=== PATIENT | male | born 1975 | race Caucasian/White ===

== ENCOUNTER 2022-03-24 05:57 | Day surgery (SDC) | payer OTHER ==
[~2022-03-24] VITALS: Ht 172.7 cm; Wt 88.6 kg
[~2022-03-24 05:57] MED LIST: NICODERM PATCH; TIZANIDINE HCL2 MG PO
[2022-03-24] MEDS ORDERED: NICO21TP TOP (06:16)
[2022-03-24] MEDS ORDERED: Norco 10-325 T1 EACH PO (06:17)
[2022-03-24] MEDS ORDERED: IBU600 M1 PO (06:17)
--- NOTE | 2022-03-24 07:52 | NUR ---
03/24/22 0752 Maria L Edwards NO PREOP ANTIBIOTICS PER .
--- NOTE | 2022-03-24 09:17 | NUR ---
Patient up to Ambulate independently. Gait steady. Discharge instructions reviewed with patient. Patient verbalizes understanding. Copy given to patient to take home. Patient States Post-Procedure ride home has been arranged. Discharged via wheelchair to private car for ride home.
== END 2022-03-24 09:17 | disposition home or self-care (01) ==
LOC: ORSCMMR 05:57 → ORD 10:00 → ORSCMMR 10:00
PROVIDERS: Surgery
PROC: 0JB40ZX Excision of Right Neck Subcutaneous Tissue and Fascia, Open Approach, Diagnostic (ICD-10-PCS; principal; 2022-03-24 07:30)
DX: L72.0 Epidermal cyst (principal); F17.210 Nicotine dependence, cigarettes, uncomplicated
CPT/HCPCS: 88304; A9270; J2795; J7120

== ENCOUNTER 2023-04-16 16:18 | Emergency (ER) | payer OTHER ==
[~2023-04-16] VITALS: Ht 172.7 cm; Wt 87.5 kg
[~2023-04-16 16:18] MED LIST changes: +IBU600 M1 PO; +NICO21TP TOP; +Norco 10-325 T1 EACH PO
[2023-04-16 17:09] LABS: BASOPHILS ABSOLUTE AUTO 0.09 K/mm3 (0.00-0.23); BASOPHILS PERCENT AUTO 1 % (0-2); EOSINOPHILS ABSOLUTE AUTO 0.44 K/mm3 (0.00-0.68); EOSINOPHILS PERCENT AUTO 3 % (0-6); Hematocrit 44.1 % (37.0-53.0); Hemoglobin 15.9 g/dL (13.5-17.5); IMMATURE GRAN ABSOLUTE AUTO 0.04 K/mm3 (0.00-0.10); IMMATURE GRAN PERCENT AUTO 0 % (0-1); LYMPHOCYTES PERCENT AUTO 24 % (21-46); MONOCYTES PERCENT AUTO 11 % (4-13); Mean Corpuscular HGB 33.4 pg (26.0-34.0); Mean Corpuscular HGB Conc 36.1 g/dL (31.5-36.5); Mean Corpuscular Volume 93 fL (80-100); NEUTROPHILS ABSOLUTE AUTO 7.93 K/mm3 (1.96-9.15); NEUTROPHILS PERCENT AUTO 61 % (41-73); Platelet Count 369 K/mm3 (150-400); RDW Coefficient Variation 12.3 % (11.7-14.2); RDW Standard Deviation 42.5 fL (35.1-46.3); Red Blood Cell Count 4.76 M/mm3 (4.30-5.90)
[2023-04-16 17:37] LABS: Alanine Aminotransfer (ALT/SGP 53 U/L (12-78); Albumin, Blood 4.1 g/dL (3.4-5.0); Alk Phos 93 U/L (50-136); Anion Gap Unable to Calculate mmol/L (6-16); Aspartate Aminotrans (AST/SGOT 30 U/L (12-37); Bilirubin, Total 0.2 mg/dL (0.1-1.0); Blood Urea Nitrogen 9 mg/dL (8-24); Bun/Creatinine Ratio 10.3 (12.0-20.0); CO2, Blood 27 mmol/L (21-32); Calcium, Blood 9.3 mg/dL (8.5-10.1); Chloride, Blood 109 mmol/L (98-108); Creatinine, Blood 0.87 mg/dL (0.60-1.20); Glomerular Filtration Rate 107 (60-); Glucose, Blood 119 mg/dL (70-99); Potassium, Blood 4.3 mmol/L (3.5-5.5); Sodium, Blood 135 mmol/L (136-145); Total Protein, Blood 8.1 g/dL (6.4-8.2)
[2023-04-16] MEDS ORDERED: Cephalexin Monohydrate 500 MG Cap PO ONE (18:55)
[2023-04-16] MEDS ORDERED: Ketorolac Tromethamine 15mg Vial IV ONE (18:55)
[2023-04-16] MEDS ORDERED: CEPH500 PO (19:00)
[2023-04-16 19:28] VITALS: BP 156/92
== END 2023-04-16 19:30 | disposition home or self-care (01) ==
LOC: ER 16:18
PROVIDERS: Student in an Organized Health Care Education/Training Program
DX: L03.211 Cellulitis of face (principal); K04.7 Periapical abscess without sinus; Z88.8 Allergy status to other drugs, medicaments and biological substances; Z79.899 Other long term (current) drug therapy
CPT/HCPCS: 70491; 80053; 85025; 96374-59; 99283-25; J1885; Q9967

== ENCOUNTER 2023-04-18 07:48 | Inpatient (IN) | payer OTHER ==
[~2023-04-18] VITALS: Ht 172.7 cm; Wt 93.9 kg
[~2023-04-18 07:48] MED LIST changes: +CEPH500 PO
[2023-04-18] MEDS ORDERED: Clindamycin 900mg in D5W 50ML 50 ML IV ONE (08:30)
[2023-04-18 08:52] LABS: BASOPHILS ABSOLUTE AUTO 0.09 K/mm3 (0.00-0.23); BASOPHILS PERCENT AUTO 1 % (0-2); EOSINOPHILS ABSOLUTE AUTO 0.49 K/mm3 (0.00-0.68); EOSINOPHILS PERCENT AUTO 4 % (0-6); Hematocrit 46.1 % (37.0-53.0); Hemoglobin 15.8 g/dL (13.5-17.5); IMMATURE GRAN ABSOLUTE AUTO 0.04 K/mm3 (0.00-0.10); IMMATURE GRAN PERCENT AUTO 0 % (0-1); LYMPHOCYTES ABSOLUTE AUTO 2.54 K/mm3 (0.84-5.20); LYMPHOCYTES PERCENT AUTO 20 % (21-46); MONOCYTES ABSOLUTE AUTO 1.54 K/mm3 (0.16-1.47); MONOCYTES PERCENT AUTO 12 % (4-13); Mean Corpuscular HGB 33.1 pg (26.0-34.0); Mean Corpuscular HGB Conc 34.3 g/dL (31.5-36.5); Mean Corpuscular Volume 96 fL (80-100); Mean Platelet Volume 8.4 fL (9.1-12.4); NEUTROPHILS ABSOLUTE AUTO 8.33 K/mm3 (1.96-9.15); NEUTROPHILS PERCENT AUTO 64 % (41-73); Platelet Count 350 K/mm3 (150-400); RDW Coefficient Variation 12.4 % (11.7-14.2); RDW Standard Deviation 44.2 fL (35.1-46.3); Red Blood Cell Count 4.78 M/mm3 (4.30-5.90); White Blood Cell Count 13.03 K/mm3 (4.00-11.30)
[2023-04-18 09:17] LABS: Albumin, Blood 3.9 g/dL (3.4-5.0); Bilirubin, Total 0.4 mg/dL (0.1-1.0); Bun/Creatinine Ratio 16.6 (12.0-20.0); C-REACTIVE PROTEIN, EXT RANGE 0.887 mg/dL (0.000-0.300); Calcium, Blood 9.2 mg/dL (8.5-10.1); Creatinine, Blood 0.78 mg/dL (0.60-1.20); Globulin, Blood 3.8 g/dL (2.2-4.0); Potassium, Blood 4.5 mmol/L (3.5-5.5); Total Protein, Blood 7.7 g/dL (6.4-8.2)
[2023-04-18] MEDS ORDERED: Dexamethasone Sod Phos 10 MG/ML 1ML VIAL IV ONE (11:15)
[2023-04-18] MEDS ORDERED: HYDROmorphone HCl/Pf 1MG SYR IV PRN (12:15)
[2023-04-18] MEDS ORDERED: Ondansetron HCl 2 MG / ML 2ML Vial IV PRN (12:30)
[2023-04-18] MEDS ORDERED: FLU VACC QS2023-24(6MOS UP)/PF 60 MCG/0.5 ML SYRINGE IM SCH (12:30)
[2023-04-18] MEDS ORDERED: Lactated Ringer's 1,000 ML IV SCH (12:30)
[2023-04-18] MEDS ORDERED: CeFAZolin Sodium 2,000 MG in NS 50 ML IV SCH (12:30)
[2023-04-18] MEDS ORDERED: Acetaminophen 325 MG TABLET PO PRN (12:30)
[2023-04-18] MEDS ORDERED: FentaNYL Citrate 50 MCG/ML 2 ML Injection IV ONE (13:05)
[2023-04-18] MEDS ORDERED: Lidocaine 2%-Epineph 1:100000 20 ML MDV XX SCH (13:30)
[2023-04-18] MEDS ORDERED: Sodium Bicarb 8.4% 1 MEQ/ML 50 ML Vial XX SCH (13:30)
[2023-04-18 15:11] VITALS: BP 139/95
[2023-04-18] MEDS ORDERED: AMOCLA875 PO ×2 (15:15)
[2023-04-18] MEDS ORDERED: NS 50 ML IV ONE (16:47)
--- NOTE | 2023-04-18 18:15 | NUR ---
MAKES NEEDS KNOWN, STARTED ON FULL LIQUID DIET, AT BED SIDE, ALERT AND ORIENTED STEADY ON FEET, MEDICATED FOR PAIN ONCE, PATIENT REPORTED RELIEF, ICE IN LEFT CHIN DRAIN SITE, OPEN TO AIR, CALL LIGHT WITH IN REACH, WILL RELAY TO PM RN
[2023-04-18 19:37] VITALS: BP 141/98
[2023-04-18] MEDS ORDERED: Dexamethasone Sod Phos 10 MG/ML 1ML VIAL IV SCH (20:00)
--- NOTE | 2023-04-19 04:36 | NUR ---
SHIFT SUMMARY; NO ACUTE CHANGES IN PATIENT CONDITION NOTED DURING NOC SHIFT. HE IS MEDICATED X 2 FOR PAIN WITH DILAUDID IMG IVP WITH GOOD SUCCESS. HIS SPOUSE DID SPEND THE NIGHT IN THE ROOM WITH PATIENT. LR INFUSING AT 75ML/HR ORDERED. PATIENT IS AO X 4. MILD SWELLING TO LOWER JAW. NO INTERFERENCE WITH BREATHING NOTED. PER PATIENT IT STOPPED OOZING ABOUT 0300 THIS AM. HE IS NOT FEBRILE. VITAL SIGNS ARE STABLE. WILL REMAIN AVAILABLE FOR THIS PATIENT FOR ANY WANTS OR NEEDS THAT MAY COME UP UNTIL REPORT AND HAND OFF TO DAY SHIFT RN AT SHIFT CHANGE.
[2023-04-19 05:19] VITALS: BP 105/84
[2023-04-19 07:28] VITALS: BP 129/90
[2023-04-19 15:37] VITALS: BP 149/82
[2023-04-19] MEDS ORDERED: NS 50 ML IV ONE ×2 (15:44→23:32)
--- NOTE | 2023-04-19 17:41 | NUR ---
SUMMARY PT SITTING UP IN BED EATING DINNER, PT HAS BEEN PLEASANT AND COOPERATIVE WITH CARE T/O THE DAY, INDEPENDENT IN THE ROOM, USES THE CALL LIGHT APPROPRIATELY, MED PER EMAR FOR PAIN AND NAUSEA, PT USING A WARM WASHCLOTH COMPRESS TO HIS CHIN TO FACILITATE DRAINAGE, PT REPORTS GOOD RESULTS, VSS, NO COMPLAINTS, WILL CONT TO MONITOR
[2023-04-19 19:36] VITALS: BP 124/80
[2023-04-20 03:30] VITALS: BP 107/70
--- NOTE | 2023-04-20 05:08 | NUR ---
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 FULL CODE. IV ANTIB RX ARE SCHEDULED. FULL LIQUID DIET. DR. LEON IS CONSULT. I&D PERFORMED AT BEDSIDE. HE IS A&O X4, INDEPENDENT IN ROOM. ON RA. NO N/V REPORTED THIS SHIFT. LR INFUSING ORDERED. PT STATES HE IS MUCH IMPROVED AND HIS SWELLING HAS REDUCED DRAMATICALLY.
[2023-04-20 07:20] VITALS: BP 128/74
[2023-04-20] MEDS ORDERED: HYDMOR2 PO ×2 (11:01)
--- NOTE | 2023-04-20 14:29 | NUR ---
PT AWAKE DURING SHIFT REPORT. A&O, PLEASANT AND CO-OP WITH CARE. IN RM AT BS. PT UP INDEPENDENTLY IN RM AND TO BTHRM. REQUESTED PAIN MEDICATION FOR CHIN ABSCESS, BEFORE BREAKFAST. MEDICATED PER EMAR. PT REPORTED MUCH IMPROVEMENT SINCE ADMISSION. PT RECEIVING IV ABX, CHANGED TO PO FOR D/C TO HOME. MEDS FAXED TO PHARMACY, PER PT REQUEST. HARD SCRIPT GIVEN FOR PO DILUADID. D/C INSTRUCTIONS REVIEWED WITH PT; VERBALIZED UNDERSTANDING. PT DECLINED ASSISTANCE OUT TO CAR. ALL BELONGINGS WENT WITH PT.
== END 2023-04-20 11:36 | disposition home or self-care (01) | DRG 158 ==
LOC: ER 07:48 → MEDS 12:28
PROVIDERS: Physician Assistant; ADMIT Internal Medicine
PROC: 0J910ZZ Drainage of Face Subcutaneous Tissue and Fascia, Open Approach (ICD-10-PCS; principal; 2023-04-18)
DX: K12.2 Cellulitis and abscess of mouth (principal); L02.01 Cutaneous abscess of face; L03.211 Cellulitis of face; G89.29 Other chronic pain; M54.9 Dorsalgia, unspecified; K04.7 Periapical abscess without sinus; Z88.8 Allergy status to other drugs, medicaments and biological substances; Z79.899 Other long term (current) drug therapy
CPT/HCPCS: 10060; 70491; 76536; 80053; 85025; 86140; 94762; 96365-59; 96367-59; 96374-59; 96375-59; 99283-25; 99284-25; A9270; J0690; J1100; J1170; J1885; J2405; J3010; J7120; Q9967

== ENCOUNTER → 2023-12-15 | Outpatient (CLI) | payer OTHER ==
[~2023-12-15] MED LIST changes: +AMOCLA875 PO; +HYDMOR2 PO
[2023-12-15 19:58] LABS: BASOPHILS ABSOLUTE AUTO 0.09 K/mm3 (0.00-0.23); BASOPHILS PERCENT AUTO 1 % (0-2); EOSINOPHILS ABSOLUTE AUTO 0.46 K/mm3 (0.00-0.68); EOSINOPHILS PERCENT AUTO 5 % (0-6); Hematocrit 43.9 % (37.0-53.0); Hemoglobin 15.4 g/dL (13.5-17.5); IMMATURE GRAN ABSOLUTE AUTO 0.02 K/mm3 (0.00-0.10); IMMATURE GRAN PERCENT AUTO 0 % (0-1); LYMPHOCYTES ABSOLUTE AUTO 3.18 K/mm3 (0.84-5.20); LYMPHOCYTES PERCENT AUTO 32 % (21-46); MONOCYTES ABSOLUTE AUTO 1.01 K/mm3 (0.16-1.47); MONOCYTES PERCENT AUTO 10 % (4-13); Mean Corpuscular HGB 32.6 pg (26.0-34.0); Mean Corpuscular HGB Conc 35.1 g/dL (31.5-36.5); Mean Corpuscular Volume 93 fL (80-100); Mean Platelet Volume 8.4 fL (9.1-12.4); NEUTROPHILS ABSOLUTE AUTO 5.16 K/mm3 (1.96-9.15); NEUTROPHILS PERCENT AUTO 52 % (41-73); Platelet Count 398 K/mm3 (150-400); RDW Coefficient Variation 12.1 % (11.7-14.2); RDW Standard Deviation 41.6 fL (35.1-46.3); Red Blood Cell Count 4.73 M/mm3 (4.30-5.90); White Blood Cell Count 9.92 K/mm3 (4.00-11.30)
[2023-12-15 20:27] LABS: Alanine Aminotransfer (ALT/SGP 41 U/L (12-78); Albumin, Blood 4.2 g/dL (3.4-5.0); Albumin/Globulin Ratio 1.2 (0.8-1.8); Alk Phos 88 U/L (50-136); Anion Gap 11 mmol/L (3-11); Aspartate Aminotrans (AST/SGOT 29 U/L (12-37); Bilirubin, Total 0.3 mg/dL (0.1-1.0); Blood Urea Nitrogen 8 mg/dL (8-24); Bun/Creatinine Ratio 8.8 (12.0-20.0); CHOL/HDL RATIO 4.1; CO2, Blood 24 mmol/L (21-32); Calcium, Blood 9.2 mg/dL (8.5-10.1); Chloride, Blood 107 mmol/L (98-108); Cholesterol 183 mg/dL (50-200); Creatinine, Blood 0.91 mg/dL (0.60-1.20); Globulin, Blood 3.4 g/dL (2.2-4.0); Glomerular Filtration Rate 104 (60-); Glucose, Blood 148 mg/dL (70-99); HDL Cholesterol 45 mg/dL (>39); LDL/HDL RATIO 1.9; Low Density Lipoprotein Chol 87 mg/dL (0-110); Potassium, Blood 3.8 mmol/L (3.5-5.5); Sodium, Blood 138 mmol/L (136-145); Total Protein, Blood 7.6 g/dL (6.4-8.2); Triglycerides 255 mg/dL (30-160); Very Low Density Lipoprot Chol 51 mg/dL (6-32)
== END ==
LOC: LAB SHORT 18:52 → LAB 18:52
PROVIDERS: Family Medicine
DX: Z00.01 Encounter for general adult medical examination with abnormal findings (principal)
CPT/HCPCS: 80053; 80061; 85025

== ENCOUNTER → 2023-12-31 | Outpatient (CLI) | payer OTHER | LOC: LAB 14:37 → LAB SHORT 14:37 | DX: R73.01 Impaired fasting glucose (principal) | CPT/HCPCS: 83036 ==